=== PATIENT | male | born 1965 | race Hispanic/Latino ===

== ENCOUNTER 2021-06-12 12:05 | Emergency (ER) | payer SELFPAY ==
[~2021-06-12] VITALS: Ht 175.3 cm; Wt 81.8 kg
[2021-06-12 12:16] VITALS: BP 183/102
[2021-06-12 12:43] VITALS: BP 160/95
[2021-06-12 12:49] LABS: HEMATOCRIT 45.5 % (39.0-50.0); HEMOGLOBIN 15.3 g/dl (14.0-18.0); IMMATURE GRANULOCYTES 0.1 % (0.0-5.0); MEAN CELL VOLUME 86.7 fL CALC (80.0-100.0); MEAN CORPUSCULAR HGB 29.1 pG CALC (26.0-32.0); MEAN CORPUSCULAR HGB CONC 33.6 g/dL CAL (32.0-36.0); NEUT# 4.94 thou/uL (1.82-7.42); RED BLOOD COUNT 5.25 mill/uL (4.70-6.10); RED CELL DISTRI WIDTH 13.5 % (11.5-15.5); URINE BILIRUBIN - DIPSTICK NEGATIVE (NEGATIVE); URINE BLOOD DIPSTICK TRACE-INTACT (NEGATIVE); URINE COLOR YELLOW; URINE GLUCOSE - DIPSTICK NEGATIVE (NEGATIVE); URINE KETONE NEGATIVE (NEGATIVE); URINE LEUK ESTERASE NEGATIVE (NEGATIVE); URINE PROTEIN - DIPSTICK NEGATIVE (NEG-TRACE); URINE SPECIFIC GRAVITY 1.015; URINE UROBILINOGEN - DIPSTICK 0.2 E.U./dL (0.2)
[2021-06-12 12:52] LABS: URINE NITRITE - DIPSTICK NEGATIVE (Negative)
[2021-06-12 13:00] VITALS: BP 164/98
[2021-06-12 13:03] LABS: ANION GAP 11 (6-22 (CALC)); BUN 16 mg/dL (9-20); BUN/CREATININE RATIO 15 (12-20 (CALC)); CARBON DIOXIDE 25 mmol/l (22-30); CHLORIDE 106 mmol/l (95-108); GFR > 60 ML/MIN (>=60 (CALC)); GFR FOR AFR.AMER. > 60 ML/MIN (>=60 (CALC)); POTASSIUM 4.3 mmol/l (3.5-5.1); SODIUM 138 mmol/l (137-146)
[2021-06-12] MEDS ORDERED: ASPIRIN81 MG PO (13:11)
[2021-06-12] MEDS ORDERED: LISINOPRIL2.5 MG PO (13:14)
[2021-06-12 13:32] VITALS: BP 142/86
[2021-06-12] MEDS ORDERED: FLEXERIL5 M1 PO (14:43)
[2021-06-12] MEDS ORDERED: NAPROXEN500 MG PO (14:43)
[2021-06-12 14:53] VITALS: BP 148/97
[2021-06-12 14:55] VITALS: BP 148/97
== END 2021-06-12 15:04 | disposition home or self-care (01) | DRG 563 ==
LOC: ED 12:05
PROVIDERS: Nurse Practitioner
DX: S39.012A Strain of muscle, fascia and tendon of lower back, initial encounter (principal); I10 Essential (primary) hypertension; W55.22XA Struck by cow, initial encounter; Y93.K9 Activity, other involving animal care; Y92.73 Farm field as the place of occurrence of the external cause
CPT/HCPCS: Q9967